=== PATIENT | female | born 1965 | race Two or more races ===

== ENCOUNTER 2024-08-20 13:15 | Outpatient (AMB) | payer MEDICARE, MEDICAID, SELFPAY ==
[2024-08-20 13:28] VITALS: BP 118/68; PULSE 82; RESP 18; TEMP 36.6; O2SAT 96; BMI 34.7
--- NOTE | 2024-08-20 13:28 | PD.ORTHCLVIS ---
Vital signs 08/20/24 13:28 Height 1.53 m Height Method Stated Weight 81.25 kg Weight Measurement Method Standing Scale BMI 34.7 BP 118/68 Blood Pressure Source Automatic Cuff Blood Pressure Location Right Upper Arm Position Sitting Respiration 18 Pulse 82 Pulse Source Monitor Temp 97.9 F Temp Source Temporal Artery Scan Pulse Oximetry (%) 96 Oxygen Delivery Method Room Air Med/Allergies Allergies & Medications Allergies No Known Allergies Allergy (Verified 08/20/24 13:29) Medication Reconciliation metformin 500 mg tablet (Glucophage) 1,000 mg PO BIDAC #0 tabs 04/09/15 [History Confirmed 08/20/24] atorvastatin 10 mg tablet 10 mg PO QDAY 10/22/21 [History Confirmed 08/20/24] meloxicam 15 mg tablet 15 mg PO QDAY 10/31/23 [History Confirmed 08/20/24] celecoxib 200 mg capsule 200 mg PO bid #60 caps 12/22/23 [Rx Confirmed 08/20/24] meloxicam 7.5 mg tablet 7.5 mg PO QDAY #45 tabs 04/26/24 [Rx Confirmed 08/20/24] Subjective Visit Visit for: follow up visit and knee Immunization / Flu Flu Vaccine in the Last 12 Months: Yes Flu Vaccine Exclusion Criteria: Already Received History of Present Illness Chief complaint: F/U KNEE PAIN Patient is a pleasant 58-year-old female with bilateral knee pain. She had a fall in October approximately 6 weeks ago. She reports a direct blow on her knee. She has been ambulating but reports pain since then. She has a history of a right total knee replacement done a year ago. She reports the left knee is bothering her quite a bit. We injected her recently but she really wants another 1 today. We discussed that we typically wait 3 months but we can try again Personal History Occupation: [employer] Red flag PMH: none Pain Pain level (0-10): 10 Pain duration: ALL DAY Pain location: anterior Pain quality: sharp Pain timing: increases with activity Associated signs & symptoms: none Ambulatory data Ambulatory device: none Treatments Number of previous injections: 0 Improvement with previous injections: No Improvement with PT: No Improvement with NSAIDS: n/a Review of Systems Review of Systems: All systems negative unless otherwise noted in HPI. Exam Exam Patient is in no acute distress and is cooperative with the examination today. Patient has a normal mood and affect. Breathing is nonlabored. In no respiratory distress. Bilateral extremities were evaluated and demonstrates sensation intact to light touch. Palpable pedal pulses are present. No significant edema is present. Right knee is tender to palpation medially. Incisions clean dry intact. Knee feels stable varus valgus stress as well as AP translation. The left knee is also painful medially. Recent x-rays demonstrate a right total knee replacement in good alignment and position. The left knee demonstrates complete obliteration of the medial joint space. Osteophytes are present as well. Assessment and Plan Problem List (1) Unilateral primary osteoarthritis, left knee: Status: Acute Plan: Patient is a 58-year-old female with severe left knee osteoarthritis. We discussed nonoperative and operative options. She wants to hold off on surgery at this time given her past experience. We discussed nonoperative treatment. I discussed that we typically wait 3 months for injections but she wants another one. I discussed with her that at this point I would recommend surgery but she is adamant that she wants to continue with nonoperative Recommend knee cortisone injection as patient would like to proceed with conservative treatment at this time. The risks and benefits of the procedure were reviewed with the patient and patient gave verbal consent to continue with the procedure. Procedure: performed by Dr. Gleason Using sterile technique the left knee was thoroughly prepped with alcohol, and approximately 1 cc of Kenalog 40 mg/mL and 4 cc of 1% lidocaine was injected without resistance into the medial tibial femoral joint space. The patient tolerated the procedure. (2) Bilateral knee pain: Status: Acute Office Procedures GNS Level of Care Nursing/Assessment Patient Status: Established Patient Nursing Assessment/Reassesment: Medication Reconciliation, Update PMH in EMR and Vital Signs Coordination of Care: Complex Care and Chronic Disease 1-5, Education Complex Pt/Fam, Consent,records obtained, informed consent, Results/Orders obtained and Staff clarify orders Special Needs: Language special needs Established Patient Charge Established Patient Point Assignment: 95 Established Patient Point Charge: EP Level 3 (80-115) Surgical Proc/IM SQ injection Major Surgical Procedure: Yes (knee injection) Medication Given Medication Given Medication Given: Yes Documented Dose Given: 1 Route: Infiitration Medication Given Medication Given Medication Given: Yes Documented Dose Given: 1 Route: Infiitration Office Meds Xylocaine 10 mg/mL (1 %) injection solution Performing Provider: Evens Gleason MD Performing Location: [facility] Administered by: Evens Gleason MD on 08/20/24 13:47 Dose Route Admin Location Dispensed Lot Number Expiration Date [facility] [place] 2[place] [employer]utter 20 mL Infiltration 20 mL [id number] triamcinolone acetonide 40 mg/mL suspension for injection Performing Provider: Evens Gleason MD Performing Location: [facility] Administered by: Evens Gleason MD on 08/20/24 14:05 Dose Route Admin Location Dispensed Lot Number Expiration Date [facility] [place]NOTE 2] [employer]ne[employer] Cutter 40 mg intra-articular 1 mL [id number] [employer] Past Medical History Past Medical History Have you ever been diagnosed with any of the following: Neurological Problems Cerebrovascular Accident (CVA): No Alzheimer's Disease: No Meningitis: No Seizures: No Cardiology Problems Myocardial Infarction: No Angina: No Atherosclerotic Heart Disease: No Hypercholesterolemia: Yes Congestive Heart Failure: No Edema: No Cellulitis: No Hypertension: Yes Varicose Veins: No Respiratory Problems Chronic Obstructive Pulmonary Disease (COPD): No Emphysema: No Tuberculosis: No Sleep Apnea: No Smoking: No Smoking Cessation Counseling: No Smoking Exposure: No Stomache/Intestinal Problems Liver Cancer: No Hepatitis: No Pancreatitis: No Genital/Urinary Problems Renal Disease: No Reproductive Problems Previous Pregnancies: Yes (X3) Musculoskeletal Problems Muscular Dystrophy: No Bone Cancer: No Arthritis: Yes Carpal Tunnel Syndrome: No Fractures: Yes (LEFT HAND . IN THE PAST. CASTED) Endocrine Problems Diabetes Mellitus Type 1: No Diabetes Mellitus Type 2: Yes (TAKES MED PO) Psychologic Problems Depression: Yes (NO MEDS) Anxiety: Yes Other Problems Hospitalization: No Down Syndrome: No Developmental Delay: No Shingles: No Falls: No Blood Transfusions: No Blood Transfusion Reaction: No Anesthesia Reactions: No Organ Transplant: No MRSA: No Chicken Pox: Yes Measles: Yes Mumps: No Cancer: No Surgical History Total Knee Replacement: Yes Pacemaker: No
== END 2024-08-20 14:04 | disposition home or self-care (01) ==
LOC: HODSRG 13:15
PROVIDERS: PCP Family Medicine; Referring Provider Family Medicine; Supervising Provider Orthopaedic Surgery Adult Reconstructive Orthopaedic Surgery; Visit Provider Orthopaedic Surgery Adult Reconstructive Orthopaedic Surgery
DX: M17.12 Unilateral primary osteoarthritis, left knee (principal); M25.562 Pain in left knee; M25.561 Pain in right knee; E78.00 Pure hypercholesterolemia, unspecified; I10 Essential (primary) hypertension; Z96.651 Presence of right artificial knee joint
CPT/HCPCS: 20610; 99213; J3301; J3490; G0463

== ENCOUNTER 2024-11-28 11:01 | Outpatient (AMB) | payer MEDICARE, MEDICAID, SELFPAY ==
--- NOTE | 2024-11-28 11:24 | PD.ORTHCLVIS ---
Vital signs 11/28/24 11:25 Height 1.52 m Height Method Stated Weight 84.538 kg Weight Measurement Method Standing Scale BMI 36.6 BP 145/76 H Blood Pressure Source Automatic Cuff Blood Pressure Location Left Upper Arm Position Sitting Respiration 18 Pulse 89 Pulse Source Monitor Temp 97.6 F Temp Source Temporal Artery Scan Pulse Oximetry (%) 97 Oxygen Delivery Method Room Air Med/Allergies Allergies & Medications Allergies No Known Allergies Allergy (Verified 11/28/24 11:26) Medication Reconciliation ascorbic acid (vitamin C) 100 mg tablet (Vitamin C) 100 mg PO QDAY 08/29/24 [History Confirmed 11/28/24] ascorbic acid 7.5 mg-vit E 7.5 unit-biotin 1,250 mcg chewable tablet (Hair,Skin,Nails with Biotin) 1 tab PO DAILY 08/29/24 [History Confirmed 11/28/24] cyanocobalamin-liver extract tablet 1 tab PO DAILY 08/29/24 [History Confirmed 11/28/24] ferrous sulfate 325 mg (65 mg iron) tablet (iron) 325 mg PO QDAY 08/29/24 [History Confirmed 11/28/24] gabapentin 100 mg capsule 100 mg PO HS 08/29/24 [History Confirmed 11/28/24] irbesartan 75 mg tablet (Avapro) 75 mg PO QDAY 08/29/24 [History Confirmed 11/28/24] metformin 500 mg tablet 500 mg PO BID 08/29/24 [History Confirmed 11/28/24] hydrocodone 10 mg-acetaminophen 325 mg tablet 1 tab PO Q6H PRN pain #28 tabs 09/02/24 [Rx Confirmed 11/28/24] Exam Exam Patient is in no acute distress and is cooperative with the examination today. Patient has a normal mood and affect. Breathing is nonlabored. In no respiratory distress. Bilateral extremities were evaluated and demonstrates sensation intact to light touch. Palpable pedal pulses are present. No significant edema is present. Right knee is tender to palpation medially. Incisions clean dry intact. Knee feels stable varus valgus stress as well as AP translation. The left knee is also painful medially. She HAS SIGNIFICANT significant arthritis Recent x-rays demonstrate a right total knee replacement in good alignment and position. The left knee demonstrates complete obliteration of the medial joint space. Osteophytes are present as well. Assessment and Plan Problem List (1) Unilateral primary osteoarthritis, left knee: Status: Acute Plan: Patient is a 58-year-old female with severe left knee osteoarthritis. We discussed nonoperative and operative options. She wants to hold off on surgery at this time given her past experience. We discussed nonoperative treatment. At this point in time, she would like to consider surgery. She is actually gained 15 pounds since we last saw her. I would like to get her weight back to where she normally is before we Proceed with surgery. We will do a left knee injection today. Recommend knee cortisone injection as patient would like to proceed with conservative treatment at this time. The risks and benefits of the procedure were reviewed with the patient and patient gave verbal consent to continue with the procedure. Procedure: performed by Dr. Gleason Using sterile technique the left knee was thoroughly prepped with alcohol, and approximately 1 cc of Kenalog 40 mg/mL and 4 cc of 1% lidocaine was injected without resistance into the medial tibial femoral joint space. The patient tolerated the procedure. (2) Bilateral knee pain: Status: Acute Office Procedures GNS Level of Care Nursing/Assessment Patient Status: Established Patient Nursing Assessment/Reassesment: Medication Reconciliation, Update PMH in EMR and Vital Signs Coordination of Care: Complex Care and Chronic Disease 1-5, Education Complex Pt/Fam, Consent,records obtained, informed consent, Results/Orders obtained and Staff clarify orders Special Needs: Language special needs Established Patient Charge Established Patient Point Assignment: 95 Established Patient Point Charge: EP Level 3 (80-115) Surgical Proc/IM SQ injection Major Surgical Procedure: Yes (KNEE INJECTION ) Medication Given Medication Given Medication Given: Yes Documented Dose Given: 4 Medication Given Medication Given Medication Given: Yes Documented Dose Given: 4 Route: Infiitration Medication Given Medication Given Medication Given: Yes Documented Dose Given: 1 Medication Given Medication Given Medication Given: Yes Documented Dose Given: 1 Route: Infiitration Office Meds Xylocaine 10 mg/mL (1 %) injection solution Performing Provider: Evens Gleason MD Performing Location: [facility] Administered by: Evens Gleason MD on 11/28/24 11:45 Dose Route Admin Location Dispensed Lot Number Expiration Date [employer] 20 mL Infiltration 20 mL Xylocaine 10 mg/mL (1 %) injection solution Performing Provider: Evens Gleason MD Performing Location: [facility] Administered by: Evens Gleason MD on 11/28/24 11:45 Dose Route Admin Location Dispensed Lot Number Expiration Date [facility] Food Service Coordinator 20 mL Infiltration 20 mL [id number] FRESENI[employer] KABI triamcinolone acetonide 40 mg/mL suspension for injection Performing Provider: Evens Gleason MD Performing Location: [facility] Administered by: Evens Gleason MD on 11/28/24 11:45 Dose Route Admin Location Dispensed Lot Number Expiration Date [place] [employer] Service Coordinator 40 mg intra-articular LEFT KNEE 1 mL [id number] 02/13/26 4494-3577-77 [employer]EVA [employer]ENTER[employer] triamcinolone acetonide 40 mg/mL suspension for injection Performing Provider: Evens Gleason MD Performing Location: [facility] Administered by: Evens Gleason MD on 11/28/24 11:47 Dose Route Admin Location Dispensed Lot Number Expiration Date [facility] Food Service Coordinator 40 mg intra-articular LEFT KNEE 1 mL [id number] 02/13/26 TEVA PARENTERAL MA Intake Visit Data Collection New Patient or Established: Established Patient (seen at [facility] within 3 years) Reason for Visit:: LEFT KNEE PAIN Seen by Clinical Staff ONLY (RN/MA): No Verbal consent obtained for Telemed visit?: No 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 PCP or OBGYN visit in last 3 months: Yes Hx Now: No Do You Feel Safe at Home: Yes Authorities Contacted: N/A Questionairres Past Medical History Past Medical History Have you ever been diagnosed with any of the following: Neurological Problems Cerebrovascular Accident (CVA): No Alzheimer's Disease: No Meningitis: No Seizures: No Cardiology Problems Myocardial Infarction: No Angina: No Atherosclerotic Heart Disease: No Hypercholesterolemia: Yes Congestive Heart Failure: No Edema: No Cellulitis: No Hypertension: Yes Varicose Veins: No Respiratory Problems Chronic Obstructive Pulmonary Disease (COPD): No Emphysema: No Tuberculosis: No Sleep Apnea: No Smoking: No Smoking Cessation Counseling: No Smoking Exposure: No Stomache/Intestinal Problems Liver Cancer: No Hepatitis: No Pancreatitis: No Gall Bladder Disease: Yes Genital/Urinary Problems Renal Disease: No Reproductive Problems Previous Pregnancies: Yes (X3) Musculoskeletal Problems Muscular Dystrophy: No Bone Cancer: No Arthritis: Yes Carpal Tunnel Syndrome: No Fractures: Yes (LEFT HAND . IN THE PAST. CASTED) Endocrine Problems Diabetes Mellitus Type 1: No Diabetes Mellitus Type 2: Yes (TAKES MED PO) Blood Problems Anemia: Yes Psychologic Problems Depression: Yes (NO MEDS) Anxiety: Yes Other Problems Hospitalization: No Down Syndrome: No Developmental Delay: No Shingles: No Falls: No Blood Transfusions: No Blood Transfusion Reaction: No Anesthesia Reactions: No Organ Transplant: No MRSA: No Chicken Pox: Yes Measles: Yes Mumps: No Cancer: No Surgical History Total Knee Replacement: Yes Pacemaker: No Subjective Visit Visit for: follow up visit and knee Immunization / Flu Flu Vaccine in the Last 12 Months: No Flu Vaccine Exclusion Criteria: No Exclusion Criteria History of Present Illness Chief complaint: LEFT KNEE PAIN Patient is a 59-year-old female with severe left knee pain. She has significant left knee arthritis. She is actually up 15 pound since we last saw her. She had a lot of issues with the right knee. Pain Pain level (0-10): 8 Pain duration: ALL DAY Pain location: inside (medial), outside (lateral) and anterior Pain quality: sharp, dull and aching Pain timing: increases with activity and stairs Associated signs & symptoms: stiffness Ambulatory data Ambulatory device: none Treatments Improvement with previous injections: No Improvement with PT: No Improvement with NSAIDS: no Review of Systems Review of Systems: All systems negative unless otherwise noted in HPI.
[2024-11-28 11:25] VITALS: BP 145/76; PULSE 89; RESP 18; TEMP 36.4; O2SAT 97; BMI 36.6
== END 2024-11-28 11:39 | disposition home or self-care (01) ==
LOC: HODSRG 11:01
PROVIDERS: PCP Family Medicine; Referring Provider Family Medicine; Supervising Provider Orthopaedic Surgery Adult Reconstructive Orthopaedic Surgery; Visit Provider Orthopaedic Surgery Adult Reconstructive Orthopaedic Surgery
DX: M17.12 Unilateral primary osteoarthritis, left knee (principal); M25.561 Pain in right knee; M25.562 Pain in left knee; I10 Essential (primary) hypertension; E78.00 Pure hypercholesterolemia, unspecified; E11.9 Type 2 diabetes mellitus without complications
CPT/HCPCS: 20610; 99213; J3301; J3490; G0463

== ENCOUNTER 2025-07-08 09:43 | Outpatient (AMB) | payer MEDICARE, MEDICAID, SELFPAY ==
[2025-07-08 10:24] VITALS: BP 133/80; PULSE 76; RESP 18; TEMP 36.8; O2SAT 96; BMI 37.5
--- NOTE | 2025-07-08 10:24 | ORTHONT_ITS ---
Vital signs 07/08/25 10:24 Height 1.52 m Height Method Measured Weight 86.693 kg Weight Measurement Method Standing Scale BMI 37.5 BP 133/80 H Blood Pressure Source Automatic Cuff Blood Pressure Location Left Upper Arm Position Sitting Respiration 18 Pulse 76 Pulse Source Monitor Temp 98.3 F Temp Source Temporal Artery Scan Pulse Oximetry (%) 96 Oxygen Delivery Method Room Air Med/Allergies Allergies & Medications Allergies No Known Allergies Allergy (Verified 07/08/25 10:25) Medication Reconciliation ascorbic acid (vitamin C) 100 mg tablet (Vitamin C) 100 mg PO QDAY 08/29/24 [His tory Confirmed 07/08/25] ascorbic acid 7.5 mg-vit E 7.5 unit-biotin 1,250 mcg chewable tablet (Hair,Skin,Nails with Biotin) 1 tab PO DAILY 08/29/24 [History Confirmed 07/08/25] cyanocobalamin-liver extract tablet 1 tab PO DAILY 08/29/24 [History Confirmed 07/08/25] ferrous sulfate 325 mg (65 mg iron) tablet (iron) 325 mg PO QDAY 08/29/24 [History Confirmed 07/08/25] gabapentin 100 mg capsule 100 mg PO HS 08/29/24 [History Confirmed 07/08/25] irbesartan 75 mg tablet (Avapro) 75 mg PO QDAY 08/29/24 [History Confirmed 07/08/25] metformin 500 mg tablet 500 mg PO BID 08/29/24 [History Confirmed 07/08/25] hydrocodone 10 mg-acetaminophen 325 mg tablet 1 tab PO Q6H PRN pain #28 tabs 09/02/24 [Rx Confirmed 07/08/25] Exam Exam Patient is in no acute distress and is cooperative with the examination today. Patient has a normal mood and affect. Breathing is nonlabored. In no respiratory distress. Bilateral extremities were evaluated and demonstrates sensation intact to light touch. Palpable pedal pulses are present. No significant edema is present. Right knee is tender to palpation medially. Incisions clean dry intact. Knee feels stable varus valgus stress as well as AP translation. The left knee is also painful medially. She HAS SIGNIFICANT significant arthritis Recent x-rays demonstrate a right total knee replacement in good alignment and position. The left knee demonstrates complete obliteration of the medial joint space. Osteophytes are present as well. Assessment and Plan Problem List (1) Unilateral primary osteoarthritis, left knee: Status: Acute Plan: Patient is a 58-year-old female with severe left knee osteoarthritis. We discussed nonoperative and operative options. She wants to hold off on surgery at this time given her past experience. We discussed nonoperative treatment. At this point in time, she would like a repeat injection Recommend knee cortisone injection as patient would like to proceed with conservative treatment at this time. The risks and benefits of the procedure were reviewed with the patient and patient gave verbal consent to continue with the procedure. Procedure: performed by Dr. Gleason Using sterile technique the left knee was thoroughly prepped with alcohol, and approximately 1 cc of Depo-Medrol 80mg/mL and 4 cc of 0.2% ropivacaine was injected without resistance into the medial tibial femoral joint space. The patient tolerated the procedure. (2) Bilateral knee pain: Status: Acute Office Procedures GNS Level of Care Nursing/Assessment Patient Status: Established Patient Nursing Assessment/Reassesment: Medication Reconciliation, Update PMH in EMR and Vital Signs Coordination of Care: Complex Care and Chronic Disease 1-5, Education Complex Pt/Fam, Consent,records obtained, informed consent, Results/Orders obtained and Staff clarify orders Special Needs: Language special needs Established Patient Charge Established Patient Point Assignment: 95 Established Patient Point Charge: EP Level 3 (80-115) Surgical Proc/IM SQ injection Minor Surgical Procedure: Yes (KNEE INJECTION ) Medication Given Medication Given Medication Given: Yes Documented Dose Given: 1 Route: Infiitration Medication Given Medication Given Medication Given: Yes Documented Dose Given: 4 Route: Infiitration Office Meds methylprednisolone acetate 80 mg/mL suspension for injection Performing Provider: Evens Gleason MD Performing Location: [facility] Administered by: Evens Gleason MD on 07/08/25 10:38 Dose Route Admin Location Dispensed Lot Number Expiration Date Pack age [facility] Form Coverer 80 mg intra-articular KNEE 1 mL [id number] 09/14/26 [address]-9 [id number] [employer] ropivacaine (PF) 2 mg/mL (0.2 %) injection solution Performing Provider: Evens Gleason MD Performing Location: [facility] Administered by: Evens Gleason MD on 07/08/25 10:38 Dose Route Admin Location Dispensed Lot Number Expiration Date Pack age 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 PCP or OBGYN visit in last 3 months: Yes Hx Now: No Do You Feel Safe at Home: Yes Authorities Contacted: N/A Questionairres Past Medical History Past Medical History Have you ever been diagnosed with any of the following: Neurological Problems Cerebrovascular Accident (CVA): No Alzheimer's Disease: No Meningitis: No Seizures: No Cardiology Problems Myocardial Infarction: No Angina: No Atherosclerotic Heart Disease: No Hypercholesterolemia: Yes Congestive Heart Failure: No Edema: No Cellulitis: No Hypertension: Yes Varicose Veins: No Respiratory Problems Chronic Obstructive Pulmonary Disease (COPD): No Emphysema: No Tuberculosis: No Sleep Apnea: No Smoking: No Smoking Cessation Counseling: No Smoking Exposure: No Stomache/Intestinal Problems Liver Cancer: No Hepatitis: No Pancreatitis: No Gall Bladder Disease: Yes Genital/Urinary Problems Renal Disease: No Reproductive Problems Previous Pregnancies: Yes (X3) Musculoskeletal Problems Muscular Dystrophy: No Bone Cancer: No Arthritis: Yes Carpal Tunnel Syndrome: No Fractures: Yes (LEFT HAND . IN THE PAST. CASTED) Endocrine Problems Diabetes Mellitus Type 1: No Diabetes Mellitus Type 2: Yes (TAKES MED PO) Blood Problems Anemia: Yes Psychologic Problems Depression: Yes (NO MEDS) Anxiety: Yes Other Problems Hospitalization: No Down Syndrome: No Developmental Delay: No Shingles: No Falls: No Blood Transfusions: No Blood Transfusion Reaction: No Anesthesia Reactions: No Organ Transplant: No MRSA: No Chicken Pox: Yes Measles: Yes Mumps: No Cancer: No Surgical History Total Knee Replacement: Yes Pacemaker: No Subjective Visit Visit for: follow up visit and knee Immunization / Flu Flu Vaccine in the Last 12 Months: No Flu Vaccine Exclusion Criteria: No Exclusion Criteria History of Present Illness Chief complaint: LEFT KNEE PAIN Patient is a 59-year-old female with severe left knee pain. She has significant left knee arthritis. She would like an injection of the left knee today Pain Pain level (0-10): 8 Pain duration: ALL DAY Pain location: inside (medial), outside (lateral) and anterior Pain quality: sharp, dull and aching Pain timing: increases with activity and stairs Associated signs & symptoms: stiffness Ambulatory data Ambulatory device: none Treatments Improvement with previous injections: No Improvement with PT: No Improvement with NSAIDS: no Review of Systems Review of Systems: All systems negative unless otherwise noted in HPI.
== END 2025-07-08 10:36 | disposition home or self-care (01) ==
LOC: HODSRG 09:43
PROVIDERS: PCP Family Medicine; Referring Provider Family Medicine; Supervising Provider Orthopaedic Surgery Adult Reconstructive Orthopaedic Surgery; Visit Provider Orthopaedic Surgery Adult Reconstructive Orthopaedic Surgery
DX: M17.12 Unilateral primary osteoarthritis, left knee (principal); M25.561 Pain in right knee; M25.562 Pain in left knee; I10 Essential (primary) hypertension; E78.00 Pure hypercholesterolemia, unspecified; E11.9 Type 2 diabetes mellitus without complications
CPT/HCPCS: 20610; 99213; J1010; J2795; G0463

== ENCOUNTER → 2025-07-09 | Outpatient (CLI) | payer MEDICARE, MEDICAID, SELFPAY ==
--- NOTE | 2025-07-09 10:00 | XR_ITS ---
Examination: HYUN, hepatobiliary radioisotope scan Gallbladder ejection fraction study. Date and time of exam: July 09, 2025, 12:16 PM INDICATIONS: Abdominal pain and bloating after eating 3 years Technique: 5.8 mCi of 99M Hepatolite administered. Serial imaging then obtained from immediate through 60 minutes. 1.8 mcg selective catheter Kinevac administered for gallbladder ejection fraction study. Findings: Radioisotope activity within the liver is reasonably homogenous. Gallbladder, common bile duct small bowel activity noted Impression: Gallbladder activity Abnormal gallbladder ejection fraction, 8%, normal greater than 35%
== END | disposition home or self-care (01) ==
LOC: SNUC 09:57
PROVIDERS: PCP Family Medicine; Referring Provider Family Medicine; Visit Provider Family Medicine
DX: R93.2 Abnormal findings on diagnostic imaging of liver and biliary tract (principal)
CPT/HCPCS: 78226; A9537; J2805

== ENCOUNTER 2025-07-30 06:45 | Day surgery (SDC) | payer MEDICARE, MEDICAID, SELFPAY ==
[2025-07-30] VITALS (8 sets, daily range): BP systolic 110–147; BP diastolic 64–84; PULSE 65–80; RESP 16–20; TEMP 36.7; O2SAT 94–100; BMI 36.7
[2025-07-30] MEDS: SODIUM CHLORIDE 0.9% 500 ML 500 ML 125 ML IV (07:41)
[2025-07-30] MEDS: MIDAZOLAM INJ 1 MG/ML VIAL 2 ML (ASD USE ONLY) 2 MG IVP (07:41)
[2025-07-30] MEDS: fentaNYL CIT INJ 50 mCg/ML AMP 2ML (ASD USE ONLY) IVP (07:41)
== END 2025-07-30 08:20 | disposition home or self-care (01) ==
PROVIDERS: PCP Family Medicine; Referring Provider Surgery; Visit Provider Surgery
PROC: 0DBE8ZX Excision of Large Intestine, Via Natural or Artificial Opening Endoscopic, Diagnostic (ICD-10-PCS; CPT 45380; principal; 2025-07-30 07:30)
DX: K64.1 Second degree hemorrhoids (principal); R19.4 Change in bowel habit; M19.90 Unspecified osteoarthritis, unspecified site; E11.9 Type 2 diabetes mellitus without complications; I10 Essential (primary) hypertension; Z79.84 Long term (current) use of oral hypoglycemic drugs; Z79.899 Other long term (current) drug therapy
CPT/HCPCS: 45378; A4217; A4649; J1200; J2250; J3010; J7999

== ENCOUNTER 2025-10-07 10:15 | Outpatient (AMB) | payer MEDICARE, MEDICAID, SELFPAY ==
--- NOTE | 2025-10-07 10:39 | ORTHONT_ITS ---
Vital signs 10/07/25 10:58 Height 1.52 m Height Method Stated Weight 85.332 kg Weight Measurement Method Standing Scale BMI 36.9 BP 107/66 Blood Pressure Source Automatic Cuff Blood Pressure Location Left Upper Arm Position Sitting Respiration 18 Pulse 91 Pulse Source Monitor Temp 97.8 F Temp Source Temporal Artery Scan Pulse Oximetry (%) 94 L Oxygen Delivery Method Room Air Med/Allergies Allergies & Medications Allergies No Known Allergies Allergy (Verified 10/07/25 10:58) Medication Reconciliation irbesartan 75 mg tablet (Avapro) 75 mg PO QDAY 08/29/24 [History Confirmed 10/07/25] celecoxib 200 mg capsule 200 mg PO QDAY 07/30/25 [History Confirmed 10/07/25] magnesium 250 mg tablet 250 mg PO QDAY 07/30/25 [History Confirmed 10/07/25] metformin 1,000 mg tablet 1,000 mg PO BID 07/30/25 [History Confirmed 10/07/25] Office Procedures GNS Level of Care Nursing/Assessment Patient Status: Established Patient Nursing Assessment/Reassesment: Medication Reconciliation, Update PMH in EMR and Vital Signs Coordination of Care: Complex Care and Chronic Disease 1-5, Education Complex Pt/Fam, Consent,records obtained, informed consent, Results/Orders obtained and Staff clarify orders Special Needs: Language special needs Established Patient Charge Established Patient Point Assignment: 95 Established Patient Point Charge: EP Level 3 (80-115) Surgical Proc/IM SQ injection Minor Surgical Procedure: Yes (GEL INJECTION) Medication Given Medication Given Medication Given: Yes Documented Dose Given: 1 Route: Infiitration Office Meds hylan g-f 20 48 mg/6 mL intra-articular syringe Performing Provider: Evens Gleason MD Performing Location: [facility] Administered by: Evens Gleason MD on 10/07/25 11:49 Dose Route Admin Location Dispensed Lot Number Expiration Date Pack age [facility] Central Office Equipment Installer 48 mg intra-articular KNEE 6 mL [id number] 02/13/28 [id number] [employer] - [place] Intake Visit Data Collection New Patient or Established: Established Patient (seen at [facility] within 3 years) Reason for Visit:: FOLLOW UP Seen by Clinical Staff ONLY (RN/MA): No Pmo Manager Required: Yes PCP or OBGYN visit in last 3 months: Yes Hx Now: No Do You Feel Safe at Home: Yes Authorities Contacted: N/A Questionairres Past Medical History Past Medical History Have you ever been diagnosed with any of the following: Neurological Problems Cerebrovascular Accident (CVA): No Alzheimer's Disease: No Meningitis: No Seizures: No Cardiology Problems Myocardial Infarction: No Angina: No Atherosclerotic Heart Disease: No Hypercholesterolemia: Yes Congestive Heart Failure: No Edema: No Cellulitis: No Hypertension: Yes Varicose Veins: No Respiratory Problems Chronic Obstructive Pulmonary Disease (COPD): No Emphysema: No Tuberculosis: No Sleep Apnea: No Smoking: No Smoking Cessation Counseling: No Smoking Exposure: No Stomache/Intestinal Problems Liver Cancer: No Hepatitis: No Pancreatitis: No Gall Bladder Disease: Yes Genital/Urinary Problems Renal Disease: No Reproductive Problems Previous Pregnancies: Yes (X3) Musculoskeletal Problems Muscular Dystrophy: No Bone Cancer: No Arthritis: Yes Carpal Tunnel Syndrome: No Fractures: Yes (LEFT HAND . IN THE PAST. CASTED) Endocrine Problems Diabetes Mellitus Type 1: No Diabetes Mellitus Type 2: Yes (TAKES MED PO) Blood Problems Anemia: Yes Psychologic Problems Depression: Yes (NO MEDS) Anxiety: Yes Other Problems Hospitalization: No Down Syndrome: No Developmental Delay: No Shingles: No Falls: No Blood Transfusions: No Anesthesia Reactions: No Organ Transplant: No MRSA: No Chicken Pox: Yes Measles: Yes Mumps: No Cancer: No Surgical History Total Knee Replacement: Yes Pacemaker: No Subjective Visit Visit for: follow up visit and knee Immunization / Flu Flu Vaccine in the Last 12 Months: No Flu Vaccine Exclusion Criteria: No Exclusion Criteria History of Present Illness Chief complaint: LEFT KNEE PAIN Patient is a 59-year-old female with severe left knee pain. She has significant left knee arthritis. She Has done well with cortisone injections and like to try a left knee hyaluronic acid injection today. Pain Pain level (0-10): 8 Pain duration: ALL DAY Pain location: inside (medial), outside (lateral) and anterior Pain quality: sharp, dull and aching Pain timing: increases with activity and stairs Associated signs & symptoms: stiffness Ambulatory data Ambulatory device: none Treatments Improvement with previous injections: No Improvement with PT: No Improvement with NSAIDS: no Review of Systems Review of Systems: All systems negative unless otherwise noted in HPI.
[2025-10-07 10:58] VITALS: BP 107/66; PULSE 91; RESP 18; TEMP 36.6; O2SAT 94; BMI 36.9
== END 2025-10-07 10:57 | disposition home or self-care (01) ==
LOC: HODSRG 10:15
PROVIDERS: PCP Family Medicine; Referring Provider Family Medicine; Supervising Provider Orthopaedic Surgery Adult Reconstructive Orthopaedic Surgery; Visit Provider Orthopaedic Surgery Adult Reconstructive Orthopaedic Surgery
DX: M25.562 Pain in left knee (principal); M17.12 Unilateral primary osteoarthritis, left knee; I10 Essential (primary) hypertension; E11.9 Type 2 diabetes mellitus without complications; Z79.84 Long term (current) use of oral hypoglycemic drugs
CPT/HCPCS: 20610; 99213; G0463; J7325